=== PATIENT | female | born 1990 | race Caucasian/White ===

== ENCOUNTER 2017-02-06 23:22 | Emergency (ER) | payer OTHER ==
[~2017-02-06 23:22] MED LIST: DOCU100T PO; IBUP200T2 PO; PERCOCET PO
[2017-02-06 23:23] VITALS: BP 92/52
--- NOTE | 2017-02-07 01:08 | REP ---
Clinical: Trauma. Technique: AP and lateral views of the right ankle. Findings: Lateral swelling suggests inversion injury. No acute fracture or dislocation. No subcutaneous emphysema or radiodense foreign body. Impression: Mild lateral swelling. Signed by Yaakov Epstein MD 02/07/2017 01:00 A
== END 2017-02-07 01:34 | disposition left against medical advice (07) ==
LOC: M ED 23:22
DX: S99.911A Unspecified injury of right ankle, initial encounter (principal); Z72.0 Tobacco use; W01.198A Fall on same level from slipping, tripping and stumbling with subsequent striking against other object, initial encounter; Y92.89 Other specified places as the place of occurrence of the external cause; Y93.89 Activity, other specified; Y99.9 Unspecified external cause status

== ENCOUNTER → 2019-10-02 | Outpatient (REF) ==
[~2019-10-02] MED LIST changes: +OXYC1TAB23 PO; -PERCOCET PO
== END ==
LOC: M LAB 13:46
PROVIDERS: ATTEND Nurse Practitioner Adult Health
DX: Z02.1 Encounter for pre-employment examination (principal)

== ENCOUNTER → 2020-02-03 | Emergency (ER) | payer OTHER | END | disposition home or self-care (01) | LOC: M ED 23:55 | DX: S46.812A Strain of other muscles, fascia and tendons at shoulder and upper arm level, left arm, initial encounter (principal); X50.0XXA Overexertion from strenuous movement or load, initial encounter; Y92.230 Patient room in hospital as the place of occurrence of the external cause; Y93.F2 Activity, caregiving, lifting; Y99.0 Civilian activity done for income or pay; Z88.0 Allergy status to penicillin ==

== ENCOUNTER → 2020-02-17 | Outpatient (REF) | LOC: M EMP 13:00 | PROVIDERS: ATTEND Family Medicine | DX: Z20.828 Contact with and (suspected) exposure to other viral communicable diseases (principal) ==

== ENCOUNTER → 2020-08-04 | Outpatient (CLI) | payer OTHER ==
--- NOTE | 2020-08-05 08:16 | REP ---
INDICATION: STRAIN COMPARISON: None. TECHNIQUE: Internal rotation, external rotation, and Y view. FINDINGS: No acute fracture or dislocation. The acromioclavicular and glenohumeral joints are intact. No periarticular calcifications or degenerative changes are appreciated. Sub acromial space is normal. Surrounding soft tissues are unremarkable. IMPRESSION: Normal right shoulder radiographs. <Electronically signed by Yaakov Epstein > 08/05/20 0811
== END ==
LOC: M WUC 10:51
PROVIDERS: ATTEND Physician Assistant
DX: S46.811A Strain of other muscles, fascia and tendons at shoulder and upper arm level, right arm, initial encounter (principal); X58.XXXA Exposure to other specified factors, initial encounter; Y92.89 Other specified places as the place of occurrence of the external cause; Y93.9 Activity, unspecified; Y99.9 Unspecified external cause status